=== PATIENT | female | born 1980 | race Caucasian/White ===

== ENCOUNTER 2017-06-30 16:45 | Emergency (ER) | payer MEDICAID, OTHER ==
[~2017-06-30] VITALS: Ht 160 cm; Wt 52.2 kg
[2017-06-30] MEDS ORDERED: NAPR-1071 PO (17:39)
[2017-06-30] MEDS ORDERED: CYCL5TAB PO (17:39)
--- NOTE | 2017-06-30 17:39 | ED Back Pain ---
General Chief Complaint: Back Problems Stated Complaint: BACK PAIN Source of Information: Patient Exam Limitations: No Limitations History of Present Illness Date Seen by Provider: Jun 30, 2017 Time Seen by Provider: 17:36 Initial Comments To ER with reports of bilateral upper back pain that began yesterday after moving furniture. She just moved here from [place]. She did not fall Location: T-Spine Timing/Duration: 1-2 Days Severity: Moderate Allergies and Home Medications Allergies Coded Allergies: Penicillins (Verified Allergy, Unknown, 06/30/17) erythromycin base (Verified Allergy, Unknown, 06/30/17) Patient Home Medication List Home Medication List Reviewed: Yes Constitutional: see HPI EENTM: see HPI Respiratory: no symptoms reported Cardiovascular: no symptoms reported Genitourinary: no symptoms reported Musculoskeletal: see HPI, back pain Skin: no symptoms reported Psychiatric/Neurological: No Symptoms Reported Past Qttbria-Mtstht-Utvisr Hx Patient Social History Recent Foreign Travel: No Contact w/Someone Who Travel: No Physical Exam Vital Signs Capillary Refill : General Appearance: No Apparent Distress, WD/WN HEENT: PERRL/EOMI, TMs Normal Neck: Full Range of Motion, Normal Inspection Cardiovascular: Regular Rate, Rhythm, Normal Peripheral Pulses Respiratory: No Accessory Muscle Use, No Respiratory Distress Gastrointestinal: Normal Bowel Sounds, Non Tender, Soft Progress/Results/Core Measures Results/Orders My Orders Orders - CISCO BUCIO APRN Ketorolac Injection (Toradol Injection) (06/30/17 17:45) Departure Impression Impression: Primary Impression: Thoracic back pain Disposition: 01 HOME, SELF-CARE Condition: Stable Departure-Patient Inst. Decision time for Depature: 17:37 Referrals: NO,LOCAL PHYSICIAN (PCP/Family) Primary Care Physician Patient Instructions: Muscle Strain (DC) Add. Discharge Instructions: 1. Warm compresses to her back, soaking in warm bathtub may help. Anti- inflammatories and muscle relaxer as directed. All discharge instructions reviewed with patient and/or family. Voiced understanding. Scripts Naproxen (Naprosyn) 500 Mg Tablet 500 MG PO BID Y for PAIN-SEVERE, #30 TAB Prov: CISCO BUCIO APRN 06/30/17 Cyclobenzaprine HCl (Cyclobenzaprine HCl) 5 Mg Tablet 5 MG PO TID Y for PAIN-MODERATE TO SEVERE, #20 TAB Prov: CISCO BUCIO APRN 06/30/17 Images Torso/Trunk 1 - Tenderness CISCO BUCIO APRN Jun 30, 2017 17:39
[2017-06-30] MEDS ORDERED: KETOROLAC 60 MG/2 ML VIAL IM ONE (17:45)
[2017-06-30] MEDS ORDERED: ORPHENADRINE 60 MG/2 ML (NORFLEX) AMP IM ONE (17:45)
[2017-06-30] MEDS ORDERED: CITA10TA12 PO (18:19)
[2017-06-30 18:20] VITALS: BP 106/74
== END 2017-06-30 18:20 | disposition home or self-care (01) ==
LOC: ER 16:48
DX: M54.6 Pain in thoracic spine (principal); Z88.0 Allergy status to penicillin; Z88.1 Allergy status to other antibiotic agents; X50.0XXA Overexertion from strenuous movement or load, initial encounter
CPT/HCPCS: 96372; 99284